=== PATIENT | female | born 1985 | race Caucasian/White ===

== ENCOUNTER 2019-05-17 22:27 | Emergency (ER) | payer BC ==
[~2019-05-17] VITALS: Ht 172.7 cm; Wt 104.3 kg
[2019-05-17 22:32] VITALS: BP 140/88
--- NOTE | 2019-05-17 22:32 | NUR ---
ED Nurse Note: pt walked in to ER c/o frequent swallowing and feel of having phlegm. States she has previous had polyps removed from her throat. Pt is alert x4. VSS
[2019-05-17] MEDS ORDERED: KLONOPIN1 MG ORAL (22:35)
[2019-05-17] MEDS ORDERED: OMEPRAZOLE20 M3 ORAL (22:35)
[2019-05-17] MEDS ORDERED: Albuterol/Ipratropium 3ml neb HHN ONE (23:15)
[2019-05-17] MEDS ORDERED: IBUPROFEN400 M1 PO (23:58)
[2019-05-17] MEDS ORDERED: OMEPRAZOLE20 M2 ORAL (23:58)
[2019-05-18 00:06] VITALS: BP 129/84
--- NOTE | 2019-05-18 00:06 | NUR ---
ER DISCHARGE NOTE: Patient is cleared to be discharged per ERMD, pt is aox4, on room air, with stable vital signs. pt was given dc and prescription instructions, pt was able to verbalize understanding, pt id band removed without complications. pt is able to ambulate with steady gait. pt took all belongings.
--- NOTE | 2019-05-18 11:27 | Diagnostic Imaging Report ---
Indication: Chest pain, shortness of breath Technique: XRAY Chest 1v Comparison: None Findings: Heart appears enlarged. Mediastinal contours are sharp. There is no focal airspace consolidation, pneumothorax or pleural effusion. Osseous structures demonstrate no acute abnormality. Impression: No radiographic evidence of acute cardiopulmonary disease. Cardiomegaly.
--- NOTE | 2019-05-20 14:59 | Cardiology Report ---
APPROVED REPORT EKG Measurement Heart [id number] Normal sinus rhythm Normal ECG
--- NOTE | 2019-05-25 20:13 | Emergency Room Report ---
History of Present Illness General Chief Complaint: Sore Throat Source: Patient Present Illness HPI Patient is a 34-year-old female presented after increased sore throat. Patient reports having some increased chest discomfort. She had prior history of acid reflux. Patient reports being a smoker. She reports having some increased nonproductive cough as well as difficulty clearing phlegm. Patient is currently scheduled to see ENT and has had previous polyp surgery on her vocal cords. She states that this feels similar to prior episode at that time. Patient denies any leg pain or swelling. She is unsure if she is . She denies any vomiting or diarrhea. She denies any fever. Allergies: Coded Allergies: No Known Allergies (Unverified , 05/17/19) Patient History Past Medical History: see triage record Last Menstrual Period: 05/10/19 Now: No Reviewed Nursing Documentation: PMH: Agreed; PSxH: Agreed Nursing Documentation-PMH Past Medical History: No History, Except For Review of Systems All Other Systems: negative except mentioned in HPI Physical Exam Sp02 EP Interpretation: reviewed, normal General Appearance: normal inspection, well appearing, no apparent distress, alert, GCS 15, obese Head: atraumatic ENT: normal ENT inspection, hearing grossly normal, normal pharynx, normal voice Neck: normal inspection, full range of motion, supple, no bony tend Respiratory: normal inspection, normal breath sounds, no respiratory distress, no retraction, respiratory distress, wheezing - Faint wheezing Cardiovascular #1: regular rate, rhythm, no edema Gastrointestinal: normal inspection, normal bowel sounds, non tender, soft, no guarding, no hernia Genitourinary: no CVA tenderness Musculoskeletal: normal inspection, back normal, normal range of motion Neurologic: normal inspection, alert, oriented x3, responsive, environmental remediation specialist III-XII nml as tested, speech normal Psychiatric: normal inspection, judgement/insight normal, mood/affect normal Medical Decision Making Diagnostic Impression: Primary Impression: Nonspecific chest pain ER Course Patient presented for chest discomfort. Differential diagnosis include was not limited to viral syndrome, esophagitis, gastroesophageal reflux, pneumonia, Boerhaave syndrome, myocardial infarction among others. Because of complexity of patient's case laboratory testing and imaging studies were ordered. Patient was noted to have no prior cardiac history. 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 EKG was performed which showed normal sinus rhythm without any acute ST or T wave changes. Patient does not have any significant risk factors for pulmonary embolism. She appears to be stable for outpatient work-up.. Patient was given breathing treatment. This apparently did not improve her chest discomfort. Patient appears to have some anxiety regarding upcoming visit with ENT which is contributing to her symptoms. She was advised outpatient work-up with her ENT. Patient was advised to return if worse. Labs Test 05/17/19 23:08 Urine HCG, Qualitative Negative (NEGATIVE) Status: improved Disposition: HOME, SELF-CARE Condition: Stable Scripts Ibuprofen (Ibuprofen) 400 Mg Tablet 400 MG PO EVERY 8 HOURS, #30 TAB Prov: Ivan Gupta MD 05/17/19 Omeprazole (OMEPRAZOLE) 20 Mg Capsule.dr 20 MG ORAL DAILY, #30 CAP Prov: Ivan Gupta MD 05/17/19 Referrals: NON PHYSICIAN (PCP) Patient Instructions: Nonspecific Chest Pain Ivan Gupta MD May 25, 2019 20:13
== END 2019-05-18 00:06 | disposition home or self-care (01) ==
LOC: EMR 23:00
DX: R07.9 Chest pain, unspecified (principal); R07.0 Pain in throat; Z87.891 Personal history of nicotine dependence; K21.9 Gastro-esophageal reflux disease without esophagitis; I51.7 Cardiomegaly
CPT/HCPCS: 71045; 81025; 93005; 94640; 94664; 99284; J7620